=== PATIENT | male | born 1955 | race Caucasian/White ===

== ENCOUNTER 2021-03-25 08:55 | Day surgery (SDC) | payer OTHER ==
[2021-03-25 09:37] VITALS: RESP 16; TEMP 98.1
[2021-03-25 11:06] VITALS: BP 141/81; PULSE 56
--- NOTE | 2021-03-25 12:02 | US ---
EXAMINATION TYPE: US FNA thyroid first lesion DATE OF EXAM: 03/25/2021 COMPARISON: NONE HISTORY: Thyroid nodule. Maximal barrier technique was utilized. After informed consent, skin overlying the isthmus thyroid n odule was localized with ultrasound and the overlying skin prepped and draped. Ultrasound was utilize d using sterile technique. Lidocaine was used for local anesthesia. 6 passes with a 25-gauge needle were made into the nodule and aspirated specimen was submitted to cytology. Following the procedure hemostasis achieved. No immediate complication. The patient discharged in stable condition. IMPRESSION: STATUS POST ULTRASOUND GUIDED FINE NEEDLE ASPIRATION OF THYROID NODULE, PATHOLOGY IS PEND ING. THIS PROCEDURE WAS PERFORMED BY THE UNDERSIGNED.
== END 2021-03-25 10:40 | disposition home or self-care (01) ==
LOC: RADPROMAIN 08:55
PROVIDERS: ATTEND Family Medicine
DX: E04.1 Nontoxic single thyroid nodule (principal)
CPT/HCPCS: 10005; 88173; 88305

== ENCOUNTER → 2025-01-20 | Outpatient (CLI) | payer MEDICARE ==
--- NOTE | 2025-01-20 14:38 | CT ---
EXAMINATION TYPE: CT abdomen pelvis wo con DATE OF EXAM: 01/20/2025 COMPARISON: None CLINICAL INDICATION: Male, 69 years old with history of R31.9 HEMATURIA, UNSPECIFIED; PHH, gross nate turia. TECHNIQUE: CT scan of the abdomen and pelvis is performed without oral or IV contrast. CT DLP: 583.[address] CTDI: mGy Automated exposure control for dose reduction was used. FINDINGS: Within the limitations of a non-contrast study, the following observations are made. The lungs are clear. Gallbladder is normal and there is no gallstone, wall thickening, pericholecystic fluid or distention . There is no biliary ductal dilatation. There is no organomegaly of the liver, pancreas, spleen or adrenal glands. There is mild nodularity o f the left adrenal gland. There are no renal calcifications or hydronephrosis. The caliber of the abdominal aorta is normal and there is no retroperitoneal adenopathy or hemorrhage . 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 The bowel loops are normal in caliber is no evidence of obstruction. No inflammatory changes are iden tified in the mesentery and there is no free intraperitoneal air or fluid. There is no pelvic mass, free fluid, abscess or adenopathy. There is mild prostatic hypertrophy. The osseous structures and soft tissues are unremarkable. IMPRESSION: 1. No renal calcification or hydronephrosis. 2. Mild prostatic hypertrophy. 3. 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
== END | disposition home or self-care (01) ==
LOC: RADCTMAIN 12:55
PROVIDERS: ATTEND Family Medicine
DX: N40.0 Benign prostatic hyperplasia without lower urinary tract symptoms (principal); Z95.828 Presence of other vascular implants and grafts
CPT/HCPCS: 74176